=== PATIENT | female | born 1970 | race Caucasian/White ===

== ENCOUNTER 2018-12-02 18:42 | Emergency (ER) | payer OTHER ==
[2018-12-02 18:45] VITALS: BMI 30.6
[2018-12-02 18:53] VITALS: RESP 18
[2018-12-02 20:30] LABS: BASO # 0.02 K/mm3 (0.0-2.0); BASO % 0.3 % (0.0-3.0); EOS # 0.1 (0.0-0.7); EOS % 1.8 % (1.5-5.0); GRAN # 3.91 (1.4-6.5); GRAN % 62.5 % (50.0-68.0); HEMOGLOBIN 11.7 g/dL (12.0-16.0); LYMPH # 1.7 (1.2-3.4); LYMPH % 26.5 % (22.0-35.0); MEAN CELL VOLUME 86.4 fl (80.0-105.0); MEAN CORPUSCULAR HEMOGLOBIN 28.4 pg (25.0-35.0); MEAN CORPUSCULAR HGB CONC 32.9 g/dl (31.0-37.0); MEAN PLATELET VOLUME 9.5 fl (7.0-11.0); MONO # 0.6 (0.1-0.6); MONO % 8.9 % (1.0-6.0); RBC 4.12 10^6/uL (3.5-6.1); RED CELL DISTRIBUTION WIDTH 12.8 % (11.5-14.5); WHITE BLOOD COUNT 6.3 10^3/uL (4.5-11.0)
[2018-12-02 20:36] LABS: ALB/GLOB RATIO 1.4 (1.1-1.8); ALT/SGPT 70 U/L (7-56); AST/SGOT 48 U/L (14-36); BLOOD UREA NITROGEN 18 mg/dL (7-21); CALCIUM 9.1 mg/dL (8.4-10.5); GFR NON-AFRICAN AMERICAN > 60; INR 1.03; PARTIAL THROMBOPLASTIN TIME 24.8 Seconds (25.1-36.5); PROTHROMBIN TIME 11.8 SECONDS (9.4-12.5)
[2018-12-02 20:40] LABS: URINE BILIRUBIN NEGATIVE (NEGATIVE); URINE BLOOD NEGATIVE (NEGATIVE); URINE GLUCOSE (UA) NEGATIVE (NEGATIVE); URINE LEUKOCYTE ESTERASE TRACE Leu/uL (NEGATIVE); URINE PROTEIN TRACE mg/dL (<30 mg/dL); URINE UROBILINOGEN 0.2 E.U./dL (<1 E.U./dL)
[2018-12-02 20:41] LABS: URINE APPEARANCE CLEAR (CLEAR); URINE COLOR LIGHT YELLOW (YELLOW)
[2018-12-02 20:44] VITALS: BP 114/66; PULSE 80; O2SAT 98
[2018-12-02 20:44] LABS: URINE CALCIUM OXALATE CRYSTALS FEW /hpf
[2018-12-02 20:45] LABS: URINE RBC 0 - 2 /hpf (0-2)
[2018-12-02 20:46] LABS: B-TYPE NATRIURETIC PEPTIDE 36.6 pg/mL (0-450); TROPONIN I < 0.01 ng/mL
[2018-12-02 22:03] VITALS: TEMP 98.1
--- NOTE | 2018-12-03 09:55 | CARD ---
APPROVED REPORT Date of service: 12/02/2018 EKG Measurement Heart [id number] [place] [id number] <Conclusion> Normal sinus rhythm Normal ECG
--- NOTE | 2018-12-03 20:44 | ED PDOC ---
Arrival/HPI - General Chief Complaint: Female Genitourinary Time Seen by Provider: 12/02/18 18:50 Historian: Patient - History of Present Illness Narrative History of Present Illness (Text): 48 y/o female with PMH of breast cancer (remission since 2014 s/p lumpectomy, on Tamoxifen) presents to the ED c/o chest pain x 12 hours. Describes the pain as a left sided pressure with associated intermittent SOB. States she has been more stressed at home lately and thinks it may be secondary to anxiety. Pt also c/o dysuria over the last few days with associated urinary frequency. 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 States that all of her doctors are in [place]. Denies fever, chills, cough, sinus congestion, palpitations, diaphoresis, hemoptysis, abdominal pain, N/V/D, headache, neck pain, dizziness, or any other associated symptoms. Past Medical History - Provider Review Nursing Documentation Reviewed: Yes - Infectious Disease Hx of Infectious Diseases: None - Tetanus Immunization Tetanus Immunization: Unknown - Cardiac Hx Cardiac Disorders: No - Pulmonary Hx Respiratory Disorders: No - Neurological Hx Neurological Disorder: No - HEENT Hx HEENT Disorder: No - Renal Hx Renal Disorder: No - Endocrine/Metabolic Hx Endocrine Disorders: No - Hematological/Oncological Hx Cancer: Yes (r breast) - Integumentary Hx Dermatological Disorder: No - Musculoskeletal/Rheumatological Hx Musculoskeletal Disorders: No - Gastrointestinal Hx Gastrointestinal Disorders: No - Genitourinary/Gynecological Hx Genitourinary Disorders: No - Psychiatric Hx Psychophysiologic Disorder: No Hx Depression: No Hx Emotional Abuse: No Hx Physical Abuse: No Hx Substance Use: No - Surgical History Hx Section: Yes (x3) Other/Comment: right breast lumpectomy - Anesthesia Hx Anesthesia: No Hx Anesthesia Reactions: No Hx Malignant Hyperthermia: No - Suicidal Assessment Feels Threatened In Home Enviroment: No Family/Social History - Physician Review Nursing Documentation Reviewed: Yes Family/Social History: No Known Family HX Smoking Status: Never Smoked Hx Alcohol Use: No Hx Substance Use: No Hx Substance Use Treatment: No Allergies/Home Meds Allergies/Adverse Reactions: Allergies No Known Allergies Allergy (Verified 12/25/16 12:58) Review of Systems - Physician Review All systems were reviewed & negative as marked: Yes - Review of Systems Constitutional: Normal. absent: Fatigue, Fevers Eyes: Normal. absent: Vision Changes ENT: Normal. absent: Hearing Changes, Sore Throat, Sinus Congestion Respiratory: SOB. absent: Cough Cardiovascular: Chest Pain Gastrointestinal: Normal. absent: Abdominal Pain, Vomiting, Anorexia Genitourinary Female: Dysuria, Frequency Musculoskeletal: Normal. absent: Arthralgias, Back Pain, Neck Pain Skin: Normal. absent: Rash Neurological: Normal. absent: Headache, Dizziness Endocrine: Normal Hemo/Lymphatic: Normal Psychiatric: Anxiety Physical Exam Vital Signs Reviewed: Yes Vital Signs Temp Pulse Resp BP Pulse Ox 12/02/18 22:01 98.1 F 80 18 114/66 98 12/02/18 20:42 80 18 114/66 98 12/02/18 18:52 97.6 F 93 H 18 138/86 100 Temperature: Afebrile Blood Pressure: Normal Pulse: Regular Respiratory Rate: Normal Appearance: Positive for: Well-Appearing, Non-Toxic, Comfortable Pain Distress: None Mental Status: Positive for: Alert and Oriented X 3 - Systems Exam Head: Present: Atraumatic, Normocephalic Pupils: Present: PERRL Extroacular Muscles: Present: EOMI Conjunctiva: Present: Normal Mouth: Present: Moist Mucous Membranes Nose (External): Present: Atraumatic Nose (Internal): Present: Normal Inspection Neck: Present: Normal Range of Motion. No: Meningeal Signs, MIDLINE TENDERNESS, Paraspinal Tenderness Respiratory/Chest: Present: Clear to Auscultation, Good Air Exchange. No: Respiratory Distress, Accessory Muscle Use Cardiovascular: Present: Regular Rate and Rhythm, Normal S1, S2, Peripheal Puls es Present. No: Murmurs Abdomen: Present: Normal Bowel Sounds. No: Tenderness, Distention, Peritoneal Signs, Rebound, Guarding Back: Present: Normal Inspection. No: CVA Tenderness, Midline Tenderness, Paraspinal Tenderness Upper Extremity: Present: Normal Inspection, Normal ROM, NORMAL PULSES, Neurovascularly Intact, Capillary Refill < 2s. No: Cyanosis, Edema, Temperature Abnormalties Lower Extremity: Present: Normal Inspection, NORMAL PULSES, Normal ROM, Neurovascularly Intact, Capillary Refill < 2 s. No: Edema, Temperature Abnormalties Neurological: Present: GCS=15, CN II-XII Intact, Speech Normal, Motor Func Grossly Intact, Normal Sensory Function, Gait Normal Skin: Present: Warm, Dry, Normal Color. No: Rashes Lymphatic: No: Cervical Adenopathy Psychiatric: Present: Alert, Oriented x 3, Normal Insight, Normal Concentration, Normal Affect, Normal Mood Medical Decision Making ED Course and Treatment: Triage note states that patient is here for dysuria, however, on patient interview, she states she is having chest pressure and SOB that began this afternoon. Will work patient up for chest pain. Initial Plan: * CBC, CMP * Coags * Troponin * UA, culture * CXR * EKG * ASA Patient refusing CXR, states it is "too much radiation". Explained importance of CXR in diagnostic workup of chest pain, patient verbalizes understanding but continues to refuse. Bloodwork unremarkable. Troponin negative. UA shows small leuk esterase, will treat for UTI secondary to dysuria EKG shows rate79 NSR; Normal intervals; No STEMI or other signs of acute ischemia Patient reports feeling better, has resolution of symptoms. States her symptoms may be due to anxiety. Recommend overnight observation secondary to chest pain and SOB for cardiology consult and trending of cardiac enzymes. Patient is unwilling to stay and would like to sign out AMA. Risks of leaving discussed with patient to include , disability, worsening of symptoms. Benefits as stated above. Patient verbalizes understanding of discussion but continues to re fuse inpatient observation. States she will followup with her primary doctor. Will treat for UTI. The patient is choosing to leave against medical advice. I have personally explained to the patient that choosing to do so may result in permanent bodily harm, disability, or . I have discussed at great length that without further evaluation and monitoring there may be unforeseen circumstances and/or deterioration causing permanent bodily harm or as a result of their choice. The patient is alert, oriented, and shows the mental capacity to make clear decisions regarding the patients health care at this time. The patient continues to wish to leave against medical advice. In light of the patients decision to leave against medical advice, follow-up has been arranged and the patient is aware of the importance to following up as instructed. The patient has been advised that they should return to the emergency room immediately if they change their mind at any time, or if their condition begins to change or worsen in any way. - Lab Interpretations Lab Results: PT 11.8 SECONDS (9.4-12.5) 12/02/18 20:00 INR 1.03 12/02/18 20:00 APTT 24.8 Seconds (25.1-36.5) L 12/02/18 20:00 Troponin I < 0.01 ng/mL 12/02/18 20:00 NT-Pro-B Natriuret Pep 36.6 pg/mL (0-450) 12/02/18 20:00 Total Bilirubin 0.1 mg/dL (0.2-1.3) L 12/02/18 20:00 AST 48 U/L (14-36) H 12/02/18 20:00 ALT 70 U/L (7-56) H 12/02/18 20:00 Alkaline Phosphatase 56 U/L (38-126) 12/02/18 20:00 Total Protein 6.9 g/dL (5.8-8.3) 12/02/18 20:00 Albumin 4.0 g/dL (3.0-4.8) 12/02/18 20:00 Globulin 2.9 gm/dL 12/02/18 20: Albumin/Globulin Ratio 1.4 (1.1-1.8) 12/02/18 20:00 Urine Color Light yellow (YELLOW) 12/02/18 20:00 Urine Appearance Clear (CLEAR) 12/02/18 20:00 Urine pH 6.0 (4.7-8.0) 12/02/18 20:00 Ur Specific [place]feld >= 1.030 (1.005-1.035) 12/02/18 20:00 Urine Protein Trace mg/dL (<30 mg/dL) H 12/02/18 20:00 Urine Glucose (UA) Negative mg/dL (NEGATIVE) 12/02/18 20:00 Urine Ketones Trace mg/dL (NEGATIVE) H 12/02/18 20:00 Urine Blood Negative (NEGATIVE) 12/02/18 20:00 Urine Nitrate Negative (NEGATIVE) 12/02/18 20:00 Urine Bilirubin Negative (NEGATIVE) 12/02/18 20:00 Urine Urobilinogen 0.2 E.U./dL (<1 E.U./dL) 12/02/18 20:00 Ur Leukocyte Esterase Trace Deuce/uL (NEGATIVE) H 12/02/18 20:00 Urine RBC 0 - 2 /hpf (0-2) 12/02/18 20:00 Urine WBC 2 - 5 /hpf (0-6) 12/02/18 20:00 Ur Epithelial Cells 1 - 3 /hpf (0-5) 12/02/18 20:00 Calcium Oxalate Crystal Few /hpf (NONE) 12/02/18 20:00 12/02/18 20:00 12/02/18 20:00 Lab Results 12/02/18 20:00: Sodium 141, Potassium 3.8, Chloride 110 H, Carbon Dioxide 24, Anion Gap 11, BUN 18, Creatinine 0.6 L, Est GFR ( Amer) > 60, Est GFR (Non-Af Amer) > 60, Random Glucose 131 H, Calcium 9.1, Magnesium 1.9, Total Bilirubin 0.1 L, AST 48 H, ALT 70 H, Alkaline Phosphatase 56, Troponin I < 0.01, NT-Pro-B Natriuret Pep 36.6, Total Protein 6.9, Albumin 4.0, Globulin 2.9, Albumin/Globulin Ratio 1.4 12/02/18 20:00: Urine Color Light yellow, Urine Appearance Clear, Urine pH 6.0, Ur Specific [place]berfeld >= 1.030, Urine Protein Trace H, Urine Glucose (UA) Negative, Urine Ketones Trace H, Urine Blood Negative, Urine Nitrate Negative, Urine Bilirubin Negative, Urine Urobilinogen 0.2, Ur Leukocyte Esterase Trace H, Urine RBC 0 - 2, Urine WBC 2 - 5, Ur Epithelial Cells 1 - 3, Calcium Oxalate Crystal Few 12/02/18 20:00: PT 11.8, INR 1.03, APTT 24.8 L 12/02/18 20:00: WBC 6.3, RBC 4.12, Hgb 11.7 L, Hct 35.6 L, MCV 86.4, MCH 28.4, MCHC 32.9, RDW 12.8, Plt Count 187, MPV 9.5, Gran % 62.5, Lymph % (Auto) 26.5, Preston % (Auto) 8.9 H, Eos % (Auto) 1.8, Baso % (Auto) 0.3, Gran # 3.91, Lymph # (Auto) 1.7, Preston # (Auto) 0.6, Eos # (Auto) 0.1, Baso # (Auto) 0.02 I have reviewed the lab results: Yes - RAD Interpretation Narrative RAD Interpretations (Text): Patient refused CXR. - EKG Interpretation EKG Interpretation (Text): Rate 79; NSR; Normal Intervals; No STEMI or other signs of acute ischemia Interpreted by ED Physician: Yes Type: 12 lead EKG - Medication Orders Current Medication Orders: Discontinued Medications Aspirin (Aspirin) 325 mg PO STAT STA Stop: 12/02/18 19:28 Last Admin: 12/02/18 19:58 Dose: 325 mg Disposition/Present on Arrival - Present on Arrival Any Indicators Present on Arrival: No History of DVT/PE: No History of Uncontrolled Diabetes: No Urinary Catheter: No History of Decub. Ulcer: No History Surgical Site Infection Following: None - Disposition Have Diagnosis and Disposition been Completed?: Yes Diagnosis: Left against medical advice, Chest pain, UTI (urinary tract infection) Disposition: AGAINST MEDICAL ADVICE Disposition Time: 21:45 Condition: GUARDED Discharge Instructions (ExitCare): Urinary Tract Infection, Adult (DC), Leaving Against Medical Advice, Chest Pain (ED) Additional Instructions: Keflex every 12 hours x 1 week Followup with primary doctor tomorrow Followup with onocologist tomorrow Followup with customer sales distributor tomorrow Return to ER with new/worsening symptoms or if you wish to be re-evaluated Prescriptions: Cephalexin [Keflex] 500 mg PO Q12H 7 Days #14 capsule Referrals: [facility] [place] - Follow up with primary Yarely Campos MD [Medical Doctor] - Follow up with primary John Miguel MD [Staff Provider] - Follow up with primary Forms: [facility] (Faroese), WORK NOTE
== END 2018-12-02 22:02 | disposition left against medical advice (07) ==
LOC: ED 18:42
DX: N39.0 Urinary tract infection, site not specified (principal); R07.9 Chest pain, unspecified; Z85.3 Personal history of malignant neoplasm of breast